=== PATIENT | female | born 2000 | race Two or more races ===

== ENCOUNTER 2025-06-12 01:56 | Emergency (ER) | payer OTHER ==
[~2025-06-12] VITALS: Ht 157.5 cm; Wt 60.3 kg
[2025-06-12] MEDS ORDERED: IBUP-1455 PO (02:32)
[2025-06-12] MEDS ORDERED: HYDR-4902 PO (02:32)
--- NOTE | 2025-06-12 02:33 | ED.PDOC ---
Musculoskeletal HPI Comments Patient is a pleasant 25-year-old female who arrives the ED today for evaluation of right hand and forearm pain status post fall at home approximately 2 hours prior to arrival. Patient states she was on a stool and attempting to retrieve some items when the stool slipped and she fell, landing on her right outstretched arm. Patient denies any head trauma. Patient denies any fever nausea or vomiting. Vital signs were stable. Chief Complaint: Upper Extremity Time Seen by MD: 02:00 Reviewed Notes: Nurses Notes Allergies: Coded Allergies: NO KNOWN ALLERGIES (Unverified , 06/12/25) Information Source: Patient, Spouse Mode of Arrival: Ambulatory Location: Right Extremity Location: Arm, Wrist Timing: Hours Prehospital treatment: None Severity: Moderate Able to Move Extremity: No Bear Weight: Fully Pain: Moderate Hand Dominance: Right Mechanism: FOOSH Circumstances: Fall Onset of Symptoms: After Trauma Symptoms: Swelling, Pain DVT Risk Factors: NONE Past Medical History PAST MEDICAL HISTORY: Denies Surgical History: Denies all surgeries VP OF TECHNOLOGY History: No Pertinent VP OF TECHNOLOG[employer] History Family History Family History: Reviewed,noncontributory to illness, No family hx of Cancer, No family hx of DM, No family hx of Heart rocky, No family hx of HTN, No family hx ofKidney rocky, No family hx of Liver rocky, No family hx of Lung rocky, No family hx of Stroke Social History Smoker: Non-Smoker Alcohol: Denies ETOH Use Drugs: Denies Drug Use Lives In: Home Constitutional: denies: chills, diaphoresis, fatigue, fever, malaise, sweats, weakness, others EENTM: denies: blurred vision, double vision, ear bleeding, ear discharge, ear drainage, ear pain, ear ringing, eye pain, eye redness, hearing loss, mouth pain, mouth swelling, nasal discharge, nose bleeding, nose congestion, nose pain, photophobia, tearing, throat pain, throat swelling, voice changes, others Respiratory: denies: cough, hemoptysis, orthopnea, SOB at rest, shortness of breath, SOB with excertion, stridor, wheezing, others Cardiovascular: denies: chest pain, dizzy spells, diaphoresis, Dyspnea on exertion, edema, irregular heart beat, left arm pain, lightheadedness, palpit ations, PND, syncope, others Gastrointestinal: denies: abdomen distended, abdominal pain, blood streaked b owels, constipated, diarrhea, dysphagia, difficulty swallowing, hematemesis, melena, nausea, poor appetite, poor fluid intake, rectal bleeding, rectal pain, vomiting, others Genitourinary: denies: abnormal vagina bleeding, burning, dyspareunia, dysuria, flank pain, frequency, hematuria, incontinence, pain, , vagina discharge, urgency, others Neurological: denies: dizziness, fainting, headache, left sided numbness, left sided weakness, numbness, paresthesia, pre-existing deficit, right sided numbness, right sided weakness, seizure, speech problems, tingling, tremors, weakness, others Musculoskeletal: reports: others (Right hand, wrist and forearm pain); denies: back pain, gout, joint pain, joint swelling, muscle pain, muscle stiffness, neck pain Integumetry: denies: bruises, change in color, change in hair/nails, dryness, laceration, lesions, lumps, rash, wounds, others Allergic/Immunocompromised: denies: Difficulty Healing, Frequent Infections, Hives, Itching, others Hematologic/Lymphatic: denies: anemia, blood clots, easy bleeding, easy bruising, swollen glands, others Endocrine: denies: excessive hunger, excessive sweating, excessive thirst, excessive urination, flushing, intolerance to cold, intolerance to heat, unexplained weight gain, unexplained weight loss, others Psychiatric: denies: anxiety, bipolar disorder, depression, hopeless, panic disorder, schizophrenia, sleepless, suicidal, others Physical Exam General Appearance: Moderate Distress (Due to hand and arm pain concerns), Normal HEENT: Normal ENT Inspection, Pharynx Normal, TMs Normal Neck: Full Range of Motion, Non-Tender, Normal, Normal Inspection Respiratory: Chest Non-Tender, Lungs Clear, No Accessory Muscle Use, No Respiratory Distress, Normal Breath Sounds Cardiovascular: No Edema, No JVD, No Murmur, No Gallop, Normal Peripheral Pulses, Regular Rate/Rhythm Breast Exam: Deferred Gastrointestinal: No Organomegaly, Non Tender, No Pulsatile Mass, Normal Bowel Sounds, Soft Genitalia: Deferred Pelvic: Deferred Rectal: Deferred Extremities: Other (Patient displays tenderness to palpation throughout the distal radial area into the wrist and hand. Mild ecchymosis over the thenar eminence is appreciated. Significant reduced range of motion. Distal neurovascularly intact.) Neurologic: Alert, No Motor Deficits, Normal Affect, Normal Mood, No Sensory Deficits Cerebellar Function: NOT DONE Reflexes: NOT DONE Skin: Dry, Normal Color, Warm Lymphatic: No Adenopathy Was a procedure done? Was a procedure done?: No Differential Diagnosis EXT Differential Diagnosis: Fracture, Sprain, Dislocation, Contusion X-Ray, Labs, Meds, VS Vital Signs Date Time Temp Pulse Resp B/P (MAP) Pulse Ox O2 Delivery O2 Flow Rate FiO2 06/12/25 01:59 97.9 87 18 122/86 100 97.9 X-Ray, Labs, Meds, VS Comment All studies performed in the ED were evaluated by me personally. Imaging s garcía confirmed a distal radial buckle fracture. Patient was provided with a splint, sling, pain medication and advised him to follow up with the primary care provider in approximately 5-7 days for re-evaluation and cast placement. Time of 1ST Reevaluation: 02:30 Reevaluation 1ST: Improved Consultation: PCP Patient Education/Counseling: Diagnosis, Treatment Family Education/Counseling: Diagnosis, Treatment Sepsis Recent Procedure: No On Antibiotic Therapy: No Respiratory Rate >20: No Heart Rate >90: No Temp<36 C (96.8 F) or >38.3 C: No SBP <90 or MAP <65 mmHG: No New Acute Mental Status Change: No Is the patient on CPAP, BIPAP,: No IV fluid given: No Departure 1 Departure Time of Disposition: 02:30 Impression: Primary Impression: Distal radial fracture Disposition: HOME / SELF CARE / HOMELESS Condition: Stable Additional Instructions: Advised pain medication as needed for symptomatic relief in additionally, patient should follow up with the primary care provider in approximately five days for re-evaluation and probable cast placement. e-Prescriptions Hydrocodone-Acetaminophen (Hydrocodone Bitartrate/AC 5-325 mg) 1 Tab Tab 1 TAB PO Q6HP PRN, #20 TAB Prov: ARABELLA FRASER PAC 06/12/25 Ibuprofen Micronized (Ibuprofen) 800 Mg Tab 800 MG PO Q8HP PRN, #20 TAB Prov: ARABELLA FRASER PAC 06/12/25 Discharged With: Self, Spouse Critical Care Note Critical Care Time?: No Stability Stability form required: No Heart Score Heart Score: Heart Score Response (Comments) Value History N/A 0 EKG N/A 0 Age N/A 0 Risk Factors N/A 0 Troponin N/A 0 Total 0 ARABELLA FRASER PAC Jun 12, 2025 02:33
--- NOTE | 2025-06-12 02:38 | DVH ---
CLINICAL INDICATION: Fall/trauma TECHNIQUE: 2 views XY R FOREARM XRAY Comparison: Same-day right hand radiographs FINDINGS: Mildly comminuted and displaced fracture of the distal radial metaphysis, better appreciated on harris rison exam. No other fracture. The elbow and wrist joints are congruent. No significant soft tissue swelling of the proximal forearm. IMPRESSION: 1. Distal radius fracture better seen on hand radiographs.
--- NOTE | 2025-06-12 02:38 | DVH ---
CLINICAL INDICATION: Fall/trauma TECHNIQUE: XY R HAND 3 VIEW XRAY Comparison: None FINDINGS/IMPRESSION: : Mildly displaced and impacted partially comminuted distal radial fracture. Soft tissues are unremarkable.
[2025-06-12 02:55] VITALS: BP 130/83; PULSE 93; RESP 14; TEMP 98.4; O2SAT 100
[2025-06-12] MEDS: HYDROcodone-ACET 10/325MG TAB PO ONE (02:59)
== END 2025-06-12 03:25 | disposition home or self-care (01) ==
LOC: ER 01:56
DX: S52.521A Torus fracture of lower end of right radius, initial encounter for closed fracture (principal); W01.0XXA Fall on same level from slipping, tripping and stumbling without subsequent striking against object, initial encounter; Y93.89 Activity, other specified; Y92.218 Other school as the place of occurrence of the external cause; Y99.8 Other external cause status
CPT/HCPCS: 29125; 73090; 73130